=== PATIENT | male | born 2000 | race Two or more races ===

== ENCOUNTER 2024-11-11 09:07 | Emergency (ER) | payer MEDICAID, SELFPAY ==
[2024-11-11 09:23] VITALS: BP 134/80; PULSE 91; RESP 19; TEMP 36.9; O2SAT 99; BMI 26.3
--- NOTE | 2024-11-11 09:44 | PC.NURSE ---
Clean pt lac on his left arm with wound cleanser
[2024-11-11] MEDS: LIDOCAINE HCL 1% 20 ML VIAL 10 ML INFL (09:59)
--- NOTE | 2024-11-11 10:59 | EDNOTE_ITS ---
ED Wound/Laceration-RME/HPI General Chief Complaint: Wound/Laceration Stated Complaint: LACERATIONS TO LEFT ARM S/P TRIMMING TREE AT HOME Time Seen by Provider: 11/11/24 09:12 Source: patient Arrival date/time: 11/11/24 09:07 This is a 24-year-old male presents with complaints of multiple lacerations to his left forearm. Patient states he was trimming a tree chainsaw came down his arm causing multiple small superficial lacerations from elbow area to wrist area. Patient denies any other injuries. Patient has full range of motion of his arm and digits. Last tetanus shot 2 years ago. Patient did not attempt any interventions or take any OTC medications prior to ED visit. Patient denies any other associated symptoms or aggravating factors. No modifying factors, no radiation, no migration. Mode of arrival: ambulatory Limitations: no limitations Related Data Previous Rx's ?Medication ?Instructions ?Recorded cephalexin 500 mg capsule 500 mg PO TID #14 caps 11/11 Allergies Allergy/AdvReac Type Severity Reaction Status Date / Time No Known Allergies Allergy Verified 11/11/24 09:09 ED Exam General Limitations: Present no limitations General appearance: Present alert and in no apparent distress Head Head exam: Present atraumatic Eye Eye exam: Present normal appearance, PERRL and EOMI ENT ENT exam: Present normal exam, normal oropharynx and mucous membranes moist Neck Neck exam: Present normal inspection, full ROM and trachea midline Chest Chest inspection: Present normal inspection and symmetric chest wall rise Respiratory Respiratory exam: Present normal lung sounds bilaterally Cardiovascular Cardiovascular exam: Present regular rate, normal rhythm and normal heart sounds Abdominal Exam Abdominal exam: Present soft and normal bowel sounds Extremities Exam Extremities exam: Present full ROM (Left forearm multiple superficial lacerations from elbow to wrist area.) Expanded Upper Extremity Exam Forearm/Wrist exam: Present laceration and other (2 small abrasions in the upper AC of left forearm. #4 -3 cm lacerations to his dorsum of left forearm. No deep structures identified.) Back Exam Back exam: Present normal inspection and full ROM Neurological Exam Neurological exam: Present alert, oriented X3 and CN II-XII intact Psychiatric Psychiatric exam: Present normal affect and normal mood Skin Skin exam: Present warm, dry, intact and normal color Course Quality Measures none Orders Category Date Time Status Set Up Suture Tray STAT Care 11/11/24 09:42 Completed Wound Care NOW Care 11/11/24 09:42 Completed Lidocaine 1% 20 ml [Xylocaine 1% 20 ML] Med 11/11/24 09:42 Discontinued 10 ml INFL X1 ONE Vital Signs Vital signs: Vital Signs Temperature 98.4 F 11/11/24 09:23 Pulse Rate 91 11/11/24 09:23 Respiratory Rate 19 11/11/24 09:23 Blood Pressure 134/80 H 11/11/24 09:23 Pulse Oximetry (%) 99 11/11/24 09:23 Oxygen Delivery Method Room Air 11/11/24 09:23 Procedures -ED Laceration Laceration 1: Site: other (forearm) Side (If applicable): left Size (cm): 4 Description: linear Depth: simple, single layer Local Anesthetic: lidocaine 1% Amount of anesthesia used (mL): 5 Pre-repair: wound explored and irrigated extensively Skin layer closed with: nylon Size (cm): 4-0 Number of sutures: 5 Technique: simple, interrupted Laceration 2: Site: other (forearm mid #2 4 cm lac) Side (If applicable): left Size (cm): 4 Description: linear Depth: simple, single layer Local Anesthetic: lidocaine 1% Amount of anesthesia used (mL): 5 Pre-repair: wound explored Skin layer closed with: nylon Size (cm): 4-0 Number of sutures: 5 Laceration 3: Site: other (inner wrist #3) Side (If applicable): left Size (cm): 4 Description: linear Depth: simple, single layer Local Anesthetic: lidocaine 1% Amount of anesthesia used (mL): 5 Pre-repair: wound explored and irrigated extensively Skin layer closed with: nylon Size (cm): 4-0 Number of sutures: 5 Technique: simple, interrupted Laceration 4: Site: other (left wrist inner) Side (If applicable): left Size (cm): 4 Description: linear Depth: simple, single layer Local Anesthetic: lidocaine 1% Amount of anesthesia used (mL): 5 Size (cm): 4-0 Number of sutures: 5 Technique: simple, interrupted Wound / Laceration MDM Narrative MDM Narrative:: Patient presented with multiple lacerations starting from the AC of his left forearm down to his wrist are.the lacerations proximal to his elbow area were very superficial in which I was able to Dermabond. Using sterile technique, p atients wound cleansed, no anesthesia used. 4cm superficial wound cleanse with 150ml of normal saline, alllowed to dry, then used 3 steri strips with Dermabond for complete closure of wound. Patient tolerated procedure well. The other lacerations on the lower aspect of his left arm require sutures. See procedural note. Antibiotics sent to pharmacy. Saba to follow-up with his PCP for further evaluation. Patient data External records reviewed:: [facility] previous records Clinical information provided by:: patient Social determinants that could affect healthcare access:: none Patient has the following chronic illnesses:: None How is presenting disease/condition affected by chronic disease/condition?: no chronic disease Evaluation data The following diagnostics were reviewed and interpreted by me:: other (specify) Lab and/or radiology exams considered but not ordered:: X-ray however superficial lacerations Interpretation Summary: Not applicable Medications / Prescriptions Medications or Prescriptions considered but not ordered:: Narcotics Medication administrations:: Medication Administration History Discontinued Medications Lidocaine HCl (Lidocaine Hcl 1% 20 Ml Vial) 10 ml INFL X1 ONE Stop: 11/11/24 09:43 Last Admin: 11/11/24 09:59 Dose: 10 ml Documented By: [facility] Comments: used by provider All medications administered and effective Consultations Consultation(s) initiated? (list below): No Diagnosis Wound Differential Diagnosis: laceration, abscess, abrasion and avulsion of skin Most likely diagnosis given after review of the tests above:: Multiple lacerations left forearm sutures Admission Indicated Admission indicated?: not indicated Admission Request Was there a request for admission?: No Disposition Plan Disposition Plan: Discharge Discharge Attestation Discharge Attestation: The patient and all family members were given an opportunity to ask questions and understood the discharge instructions. Discharge instructions specifically effects, indications for sooner follow up or return to the emergency department, and the expected course of current diagnosis. Patient condition: Stable Discharge Plan Plan Patient Disposition: HOME (Self Care) Patient condition on transfer: Stable Prescriptions/Referrals Prescriptions/Med Rec: New cephalexin 500 mg capsule 500 mg PO TID Qty: 14 0RF Referrals: No Primary/Family,Physician [Primary Care Provider] - In 1 week Problem List Clinical Impression: Laceration of multiple sites of arm Patient/Caregiver Discharge Instructions Discharge Activity: activity as tolerated Education Materials: ED Laceration: All Closures Additional Instructions: Please keep area clean and dry. Please follow up with Primary Doctor in 7-10 day for suture removal. Please return to ER if theres is any sign of infection. Please keep wound clean and dry. Start antibiotic as directed. Print Language: Maldivian Stand Alone Forms: Carissa Award Info., Patient Portal Info Letter PA/ASSISTANT ACCOUNT MANAGER Supervising Physician PA/ASSISTANT ACCOUNT MANAGER Supervising Physician: Dr Gaona
== END 2024-11-11 11:21 | disposition home or self-care (01) ==
PROVIDERS: Emergency Provider Emergency Medicine
DX: S51.812A Laceration without foreign body of left forearm, initial encounter (principal); W29.3XXA Contact with powered garden and outdoor hand tools and machinery, initial encounter; Y93.H2 Activity, gardening and landscaping
CPT/HCPCS: 12005; 99283; J3490